=== PATIENT | male | born 1965 | race Caucasian/White ===

== ENCOUNTER → 2023-08-04 16:04 | Outpatient (REF) | payer OTHER, SELFPAY | LOC: RAD 16:04 | PROVIDERS: ATTENDING PHYSICIAN Family Medicine | DX: M25.562 Pain in left knee (principal); M89.8X1 Other specified disorders of bone, shoulder | CPT/HCPCS: 73000; 73564 ==

== ENCOUNTER → 2024-08-04 13:35 | Outpatient (REF) | payer OTHER, SELFPAY | LOC: HWRAD 13:35 | PROVIDERS: ATTENDING PHYSICIAN Family Medicine | DX: R94.6 Abnormal results of thyroid function studies (principal); M24.849 Other specific joint derangements of unspecified hand, not elsewhere classified; M79.641 Pain in right hand | CPT/HCPCS: 73130; 76536 ==

== ENCOUNTER → 2024-12-04 07:28 | Outpatient (REF) | payer OTHER, SELFPAY | LOC: RCS 07:28 | PROVIDERS: ATTENDING PHYSICIAN Internal Medicine Cardiovascular Disease; FAMILY PHYSICIAN Family Medicine | DX: R94.31 Abnormal electrocardiogram [ECG] [EKG] (principal); R00.1 Bradycardia, unspecified | CPT/HCPCS: 93017; 93306 ==